=== PATIENT | male | born 1950 | race Caucasian/White ===

== ENCOUNTER 2023-03-26 09:04 | Inpatient (IN) ==
--- NOTE | 2023-03-08 13:29 | PAT Medication Instructions ---
Medication Instructions Date of Service March 08, 2023 Home Medications Balance Of Nature 6 tab PO QAM amlodipine 10 mg tablet 10 mg PO QPM aspirin 81 mg tablet 81 mg PO UD atorvastatin 40 mg tablet 40 mg PO PM hydrochlorothiazide 25 mg tablet 25 mg PO QPM losartan 100 mg tablet 100 mg PO QPM metoprolol tartrate 25 mg tablet 25 mg PO QPM ASK your prescriber and surgeon aspirin 81 mg tablet 81 mg PO UD STOP taking 2 weeks before surgery (or as soon as possible if surgery is within 2 weeks) Balance Of Nature 6 tab PO QAM Take evening before surgery amlodipine 10 mg tablet 10 mg PO QPM atorvastatin 40 mg tablet 40 mg PO PM hydrochlorothiazide 25 mg tablet 25 mg PO QPM losartan 100 mg tablet 100 mg PO QPM metoprolol tartrate 25 mg tablet 25 mg PO QPM Other Notes NOTHING TO EAT OR DRINK AFTER MIDNIGHT. If you have any questions please call us at [phone] or [phone] or [phone] or [phone]
--- NOTE | 2023-03-12 10:39 | Anesthesiology Consultation ---
Date of Service March 12, 2023 Assessment & Plan (1) Encounter for pre-operative examination: Infectious disease screening: Per assessment on 03/12/23: No known infectious disease contacts or current infectious disease symptoms. No noted recent Covid positive test result. Chart Review Chart Review: Acceptable Risk for Surgery and Patient seen in Pre Admission Testing Teaching & Discussion Pre-Anesthesia Teaching/Discussion Notes: Instructed NPO after midnight before surgery,except medications with 15 cc of water. Medication instructions provided according to the PAT guidelines. History Surgery Operation Date: 03/26/23 07:45 Proposed Procedures p L3-S1 Decompression and Fusion with Spinal Cord Monitoring - Jeff Buchanan DO Height/Weight Height: 5 ft 11 in Weight: 102.1 kg Allergies Allergy/AdvReac Type Severity Reaction Status Date / Time No Known Allergies Allergy Unverified 03/05/23 14:36 Medications Home Medications Medication Instructions Recorded Confirmed Last Taken Balance Of Nature 6 tab PO QAM 03/05/23 Unknown amlodipine 10 mg tablet 10 mg PO QPM 03/05/23 03/05/23 Unknown aspirin 81 mg tablet 81 mg PO UD 03/05/23 03/05/23 Unknown atorvastatin 40 mg tablet 40 mg PO PM 03/05/23 03/05/23 Unknown hydrochlorothiazide 25 mg tablet 25 mg PO QPM 03/05/23 03/05/23 Unknown losartan 100 mg tablet 100 mg PO QPM 03/05/23 03/05/23 Unknown metoprolol tartrate 25 mg tablet 25 mg PO QPM 03/05/23 03/05/23 Unknown Past Medical History Medical History Hyperlipidemia Hypertension Exercise / Class Metabolic Activity II 4-5 Yardwork/Stairs/Walk up hill (one FS (no CP, no SOB)) Past Surgical History Surgical History History of total hip arthroplasty left History of colonoscopy Past Anesthesia History No Hx of Anesthesia Complications and No Family Hx of Anesthesia Complications History of PONV No Hx of PONV and No Hx of Motion Sickness Social History Smoking Status: Never smoker Do You Dip or Chew Tobacco: No (Quit chewing tobacco 01/16/2023) Hx Alcohol Use: Yes Alcohol type: beer alcohol intake frequency: 0-2 drinks per day (2 beers or bourbon/day) Hx Substance Use: No Review of Systems Patient denies chest pain, shortness of breath, dyspnea on exertion, fever, chills, cough, wheezing, palpitations. Physical Exam Vital Signs VITALS BP 127/71 P 61 TEMP 98.5 SP02 97%RA RESP 16 PHYSICAL Full cervical extension range of motion. Full TMJ range of motion. TMD 3 finger breaths Mallampati Score 2 Dentition: missing sides Lungs: clear throughout to auscultation Cardiac: regular rate and rhythm, no murmurs noted Spine: normal Carotid arteries: negative bruit Extremities: no LE edema Lab Results Anesthesia Preop Results Results Anesthesia Widget: WBC 6.71 K/ul (4.8-10.8) 03/12/23 Hgb 16.7 g/dl (14.0-18.0) 03/12/23 Hct 48.3 % (42.0-52.0) 03/12/23 Plt 237 K/uL (130-400) 03/12/23 Na 139 mmol/L (136-145) 03/12/23 K 3.7 mmol/L (3.5-5.1) 03/12/23 Cl 102 mmol/L (98-107) 03/12/23 CO2 30 mmol/L (21-32) 03/12/23 BUN 16 mg/dl (6-23) 03/12/23 Creat 0.85 mg/dl (0.6-1.4) 03/12/23 Glucose Level 107 mg/dl (70-99(Fasting)) H 03/12/23 PT 10.9 Seconds (9.0-12.0) 03/12/23 PTT 26 Seconds (21-31) 03/12/23 INR 1.0 (0.9-1.1) 03/12/23 Urine Color Yellow 03/12/23 Urine Appearance Clear (Clear) 03/12/23 Urine pH 7.0 (4.5-7.5) 03/12/23 Urine Specific [place] 1.016 (1.000-1.030) 03/12/23 Urine Protein Negative (Negative) 03/12/23 Urine Glucose (UA) Negative (Negative) 03/12/23 Urine Ketones Negative (Negative) 03/12/23 Urine Blood Negative (Negative) 03/12/23 Urine Nitrite Negative (Negative) 03/12/23 Urine Bilirubin Negative (Negative) 03/12/23 Urine Urobilinogen Negative (Negative) 03/12/23 Urine Leukocyte Esterase Negative (Negative) 03/12/23 Blood Type B Positive 03/12/23 Antibody Screen NEGATIVE 03/12/23 Testing Electrocardiogram Date: 03/12/23 NSR at 64bpm. NS STA. Chest X-Ray Date: 03/12/23 FINDINGS: Lung volumes are normal. Lungs are clear. Nipple shadows project over the lower chest. There is no pneumothorax or pleural effusion. Cardiac size is normal. Mediastinal contours are normal. There is no evidence for pulmonary edema. IMPRESSION: No acute cardiopulmonary findings.
[~2023-03-26 09:04] MED LIST: ACETAMINOPHEN 500 MG TAB PO SCH; CeleBREX 200 MG CAP PO SCH; GABAPENTIN 300 MG CAP PO SCH; LR 15ML/HR IV SCH; LR 60ML/HR IV SCH; ceFAZolin 2000MG 2,000 MG/15 ML SYR IV SCH
[2023-03-26] MEDS ORDERED: ATROPINE SULFATE 0.1 MG/ML 10ML SYR IV PRN (10:41)
[2023-03-26] MEDS ORDERED: ONDANSETRON INJ 2 MG/ML 2 ML VIAL IV PRN ×2 (10:41→17:45)
[2023-03-26] MEDS ORDERED: ePHEDrine sulfate 50 MG/ML AMP IV PRN (10:41)
--- NOTE | 2023-03-26 11:17 | History & Physical Bridge Note ---
Date of Service March 26, 2023 History & Physical Bridge Note I have examined the patient, reviewed the History & Physical and in the interval since the performance of the History & Physical I have noted the following changes of clinical significance: no changes noted
--- NOTE | 2023-03-26 11:18 | History & Physical Report ---
Date of Service March 26, 2023 Assessment & Plan (1) Neurogenic claudication due to lumbar spinal stenosis: Plan: L3-S1 decompression and fusion History of Present Illness Chief Complaint: Back and bilateral leg pain Primary Care Provider: NO PCP This is a 72-year-old male who presents with chronic persistent back and leg pain after failing course of nonoperative care is here for surgical intervention. Allergies Allergy/AdvReac Type Severity Reaction Status Date / Time No Known Allergies Allergy Verified 03/26/23 09:55 Home Medications Medication Instructions Recorded Confirmed Type Balance Of Nature 6 tab PO QAM 03/05/23 03/26/23 History amlodipine 10 mg tablet 10 mg PO QPM 03/05/23 03/26/23 History aspirin 81 mg tablet 81 mg PO UD 03/05/23 03/26/23 History atorvastatin 40 mg tablet 40 mg PO PM 03/05/23 03/26/23 History hydrochlorothiazide 25 mg tablet 25 mg PO QPM 03/05/23 03/26/23 History losartan 100 mg tablet 100 mg PO QPM 03/05/23 03/26/23 History metoprolol tartrate 25 mg tablet 25 mg PO QPM 03/05/23 03/26/23 History Past Med/Surg History Medical History Hyperlipidemia Hypertension Surgical History History of total hip arthroplasty left History of colonoscopy Social History (System 01/14/23 @ 12:47 by Ruby Dumas) Smoking Status: Never smoker Tobacco Type: Smokeless Tobacco (Dip or Chew) Smoking End Date: stopped chewing tobacco 01/16/2023; Second Hand Exposure: No; Do You Dip or Chew Tobacco: No (Quit chewing tobacco 01/16/2023); Tobacco Cessation Education Requested by Patient: No Hx Alcohol Use: Yes Alcohol type: beer Hx Substance Use: No Preferred Language: French Feather Shaper Required: No Beliefs That Will Affect Care: None Current Living Situation: Spouse Other Information That Helps Us Care for You: No Feels Safe at Home: Yes Safety Concerns: Feels Safe At This Time Assistive Devices: Glasses and Hearing Aid - Bilateral Physical Exam Physical Exam: Patient is alert and oriented Heart regular in rhythm lungs clear Results & Data Results & Data Vital Signs (Past 12 Hours) Vital Signs Temp Pulse Resp BP Pulse Ox O2 Del Method 03/26/23 09:59 36.7 C 63 18 147/77 H 96 Room Air
[2023-03-26] MEDS ORDERED: fentaNYL citrate PF 100 MCG/2 ML VIAL ONE (11:57)
[2023-03-26] MEDS ORDERED: MIDAZOLAM HCL 1 MG/ML 2ML VIAL ONE (11:57)
[2023-03-26] MEDS ORDERED: BUPIVACAINE/EPINEPHRINE 0.25% 1:200,000 30 ML VIAL ONE (11:59)
[2023-03-26] MEDS ORDERED: ceFAZolin 330 MG/ML 1 GM VIAL ONE (11:59)
[2023-03-26] MEDS ORDERED: PROPOFOL IV EMULSION 10 MG/ML 20 ML VIAL IV ONE (12:32)
[2023-03-26] MEDS ORDERED: ONDANSETRON INJ 2 MG/ML 2 ML VIAL ONE ×2 (12:32→12:35)
[2023-03-26] MEDS ORDERED: ROCURONIUM BROMIDE 10 MG/ML 5 ML VIAL IV ONE ×2 (12:32→13:26)
[2023-03-26] MEDS ORDERED: DEXAMETHASONE SOD INJ 4 MG/ML VIAL ONE (12:32)
[2023-03-26] MEDS ORDERED: LIDOCAINE 2% 2 ML VIAL/AMP(20MG/ML) INFIL ONE ×2 (12:32→13:27)
[2023-03-26] MEDS ORDERED: FLOSEAL HEMOSTATIC MATRIX 10ML TOP ONE (13:06)
[2023-03-26] MEDS ORDERED: SUGAMMADEX SODIUM 200 MG/2 ML VIAL IV ONE (14:13)
--- NOTE | 2023-03-26 14:22 | Operative Report ---
Post Operative Report Pre & Post Diagnosis Operation Date: 03/26/23 11:10 Pre-Op Diagnosis: Spinal Stenosis, Lumbar Region with Neurogenic Claudication Spondylolisthesis L5-S1 Post-Op Diagnosis: Same I identified the patient and participated in the time-out.: Yes Procedure Operation Date: 03/26/23 11:10 Actual Procedures #1 lumbar decompression bilaterally facetectomies and foraminotomies L2-L3, L3- L4, L4-5 and L5-S1. #2 posterior spinal fusion L3-S1. #3 placed posterior segmental instrumentation L3-S1. #4 interbody fusion L3-L4. #5 placement sp iral 10 x 26 mm at L3-L4 #6 placement locally harvested morselized autograft and posterior gutters. #7 placement of Morpheus bone graft in the interbody space and infuse collagen sponge combined with close in the posterior lateral gutters. Surgeon Jeff Buchanan, DO Sap Manager Romie Tavarez Estimated Blood Loss 350 Findings See Below The patient is 5 foot 11 weighing over 102 kg with BMI in excess of 31. The patient's body habitus did contribute to significant technical difficulty required deepest retractors longer instruments in order to perform his procedure. This at least 50% increased operative time. Specimens None Indications This is a 72-year-old male who presents above-mentioned diagnosis after failing course of nonoperative care is here for surgical invention. Description of Procedure Patient was met with identified informed consent obtained. Patient was then taken to the operative suite underwent patient placed in a prone position ingestible top Rick frame. All bony promises well-padded eyes inspected to ensure no external pressure placed upon the. This point lumbar spine was prepped and draped in a sterile fashion. Sharp dissection with the assistance of Bovie cautery form down to and exposing the lamina transverse processes of L3 L4-5 and the sacral ala bilaterally. From caudal to cephalad fashion complete laminectomy of L5 L4 L3 and partial laminectomy of L2 was performed including bilateral medial facetectomies and foraminotomies addressing severe spinal stenosis. Pedicle screws were then placed at L3 L4-5 and S1 levels bilaterally with assistance of fluoroscopy in the process zion contoured and placed. By way of transforaminal approach on the left complete discectomy of L3-L4 was performed endplates guarded to subcortical and bone and a 11 x 26 mm prior cage with Morpheus bone graft tapped in position. The rods were then locked in final position bilaterally. The transverse processes of L3 L4-5 and sacral ala burred to subcortical pain bone. Infuse collagen sponge combined with Koros and local autograft placed in the posterior gutters. 15 round MUMTAZ inserted. The incision was then closed with 1 Vicryl to fascia 2-0 Vicryl subcutaneously and 4 Monocryl for final skin closure. Steri-Strips sterile dressing placed. Patient waken taken PACU stable condition. Please note spinal manage was utilized at the procedure no changes noted. Lastly Romie Tavarez was present at the entire surgeon while the patient positioning complex portions of the surgery and possible closure. I attest to the content of the Intraoperative Record and any orders documented therein. Any exceptions are noted below.
[2023-03-26] MEDS ORDERED: HYDROmorphone INJ 2 MG/ML SYR/VIAL ONE (14:28)
--- NOTE | 2023-03-26 15:27 | Fluoroscopy Report ---
FL lumbar spine 2-3V CLINICAL HISTORY: DECOMPRESSION AND FUSION L3-S1 COMPARISON STUDY: None. FLUOROSCOPY TIME: 34 seconds FLUOROSCOPY IMAGES: 2 Ka,r: 30.9 mGy FINDINGS: Posterior decompression and fusion from L3 through S1 with pedicle screws and rods. There i s a disc spacer at the L3-L4 level. The hardware appears intact. IMPRESSION: Fluoroscopic assistance as above. ACT 112: Negative or not required by law. Electronically signed by: Benjamin Collado M.D. 03/26/2023 3:25 PM
--- NOTE | 2023-03-26 15:52 | Anesthesiology Progress Note ---
Date of Service March 26, 2023 Anesthesia Post Procedure Vital Signs Vital Signs: Temp Pulse Resp BP Pulse Ox O2 Del Method O2 Flow Rate 03/26/23 15:45 36.4 C L 74 22 106/58 L 97 Room Air 03/26/23 15:35 60 21 105/58 L 99 Oxymask 4 03/26/23 15:25 61 16 98/58 L 99 Oxymask 4 03/26/23 15:15 59 L 16 111/63 100 Oxymask 4 03/26/23 15:05 57 L 20 109/64 99 Oxymask 6 03/26/23 14:55 67 13 122/58 L 95 Oxymask 6 03/26/23 14:47 36.3 C L 65 11 L 152/66 H 98 Oxymask 10 03/26/23 09:59 36.7 C 63 18 147/77 H 96 Room Air Transfer of Care Handoff Completed per policy Notes Mental Status: alert / awake / arousable Patient Amnestic to Procedure: Yes Nausea / Vomiting: adequately controlled Pain: adequately controlled Airway Patency, RR, SpO2: stable & adequate BP & HR: stable & adequate Hydration State: stable & adequate Anesthetic Complications: no major complications apparent
[2023-03-26] MEDS: fentaNYL citrate PF 100 MCG/2 ML VIAL IV PRN ×2 (16:00→16:05)
[2023-03-26] MEDS ORDERED: ALUMINUM/MAGNESIUM SUSP 30 ML UDC PO PRN (17:45)
[2023-03-26] MEDS ORDERED: LORazepam 0.5 MG TAB PO PRN (17:45)
[2023-03-26] MEDS ORDERED: NALOXONE HCL 0.4 MG/1 ML VIAL/CARP IV PRN (17:45)
[2023-03-26] MEDS ORDERED: DO NOT ADMINISTER PNEUMOCOCCAL VACCINE PRN (17:45)
[2023-03-26] MEDS ORDERED: ACETAMINOPHEN 1,000 MG/100 ML VIAL IV PRN (17:45)
[2023-03-26] MEDS ORDERED: HYDROmorphone INJ 0.5 MG/0.5 ML SYR IV PRN (17:45)
[2023-03-26] MEDS ORDERED: HYDROmorphone INJ 1 MG/ML SYRINGE IV PRN (17:45)
[2023-03-26] MEDS ORDERED: ONDANSETRON 4 MG OD TAB PO PRN (17:45)
[2023-03-26] MEDS ORDERED: diphenhydrAMINE Capsule 25 MG CAP PO PRN (17:45)
[2023-03-26] MEDS ORDERED: SOD PHOSPHATE/SOD BIPHOSPHATE ENEMA 132 ML BTL PR PRN (17:45)
[2023-03-26] MEDS ORDERED: traMADol HCL 50 MG TABLET PO PRN (17:45)
[2023-03-26] MEDS ORDERED: bisacodyL 10 MG SUPP PR PRN (17:45)
[2023-03-26] MEDS ORDERED: hydrOXYzine HCl 25 MG TAB PO PRN (17:45)
[2023-03-26] MEDS ORDERED: FAMOTIDINE 20 MG TAB PO PRN (17:45)
[2023-03-26] MEDS ORDERED: MAGNESIUM HYDROXIDE SUSP 30 ML UDC PO PRN (17:45)
[2023-03-26] MEDS ORDERED: METOCLOPRAMIDE HCL INJ 5 MG/ML 2 ML VIAL IV PRN (17:45)
[2023-03-26] MEDS ORDERED: PROMETHAZINE HCL 12.5 MG in SODIUM CHLORIDE 0.9% 50 ML IV PRN (17:45)
[2023-03-26] MEDS ORDERED: DO NOT ADMINISTER FLU VACCINE PRN (17:45)
[2023-03-26] MEDS ORDERED: LORazepam 0.5 MG in SYRINGE 0.25 ML IV PRN (17:45)
[2023-03-26] MEDS ORDERED: oxyCODONE HCL IR 5 MG TAB (IMMEDIATE RELEASE) PO PRN (17:45)
[2023-03-26] MEDS: LACTATED RINGER'S 1,000 ML IV SCH ×2 (17:54→23:59)
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
[2023-03-26] MEDS: LOSARTAN POTASSIUM 50 MG TAB PO SCH (20:47)
[2023-03-26] MEDS: ceFAZolin 2000MG 2,000 MG/15 ML SYR IV SCH (20:47)
[2023-03-26] MEDS: DOCUSATE SODIUM/SENNA 50/8.6MG TAB PO SCH (20:48)
[2023-03-26] MEDS: amLODIPine BESYLATE 5 MG TAB PO SCH (20:48)
[2023-03-26] MEDS: ATORVASTATIN 40 MG TAB PO SCH (20:48)
[2023-03-26] MEDS ORDERED: hydroCHLOROthiazide 25 MG TAB PO SCH (21:00)
[2023-03-26] MEDS ORDERED: METOPROLOL TARTRATE 25 MG TAB PO SCH (21:00)
[2023-03-26] MEDS: METOPROLOL SUCC 25MG EXT REL TAB PO SCH (21:55)
[2023-03-27] MEDS: ceFAZolin 2000MG 2,000 MG/15 ML SYR IV SCH (03:44)
[2023-03-27] MEDS: POLYETHYLENE (MIRALAX) 17 GM PACK PO SCH ×4 (06:05→23:06)
--- NOTE | 2023-03-27 08:10 | Orthopedic Progress Note ---
Date of Service March 27, 2023 Assessment & Plan (1) Neurogenic claudication due to lumbar spinal stenosis: Plan: Boom is postoperative day 1 status post L3-S1 decompression and instrumented fusion. He is doing well. Will start physical therapy today. DVT prophylaxis is in the form teds and SCDs. Maintain MUMTAZ drain. Continue with pain control. Anticipate discharge home early next week Admission and Anticipated Discharge Date Admission Date: March 26, 2023 Roopa Nur is postoperative day 1 status post L3-S1 decompression and fusion. He is doing well. He had an uneventful evening. Pain is controlled. MUMTAZ drain output last shift is 100 cc. Review of Systems Review of Systems: All systems reviewed & are unremarkable except as noted in HPI & below Physical Exam Physical Exam: Alert and oriented x 3 No acute distress strength is intact bilateral lower extremities Lumbar dressing is clean dry and intact with functioning MUMTAZ drain Results & Data Vital Signs (Past 12 Hours) Vital Signs Temp Pulse Resp BP Pulse Ox O2 Del Method 03/27/23 05:40 37.0 C 64 18 116/62 93 Room Air 03/27/23 01:30 37 C 67 18 116/62 95 Room Air 03/26/23 21:14 36.6 C 71 18 123/56 L 96 Room Air 03/26/23 20:15 37.1 C 69 19 110/66 94 Room Air
[2023-03-27 08:27] LABS: Basophils # (auto) 0.04 K/uL (0.00-0.20); Basophils % (auto) 0.3 %; Eosinophils # (auto) 0.08 K/uL (0.00-0.50); Eosinophils % (auto) 0.6 %; Hematocrit (blood only) 38.5 % (42.0-52.0); Hemoglobin 13.1 g/dl (14.0-18.0); Immature Granulocytes % (auto) 0.7 %; Lymphocytes # (auto) 1.19 K/uL (1.20-3.40); Lymphocytes % (auto) 8.3 %; Mean Corpuscular Hemoglobin 29.4 pg (25.0-34.0); Mean Corpuscular Volume 86.3 fL (80.0-100.0); Mean Platelet Volume 10.1 fL (9.4-12.4); Monocytes # (auto) 0.88 K/uL (0.11-0.59); Monocytes % (auto) 6.1 %; Platelet Count 205 K/uL (130-400); RDW Coefficient of Variation 12.9 % (11.5-14.5); RDW Standard Deviation 40.3 fL (36.4-46.3); Red Blood Count 4.46 M/uL (4.70-6.10); White Blood Count 14.39 K/ul (4.8-10.8)
--- NOTE | 2023-03-27 08:28 | Hospitalist Progress Note ---
Date of Service March 27, 2023 Assessment & Plan (1) Neurogenic claudication due to lumbar spinal stenosis: (2) Post-operative state: Plan: s/p lumbar decompression and fusion by Dr. Buchanan POD #1 -pain/wound management per Ortho -VTE prophylaxis per Ortho, encourage early ambulation -incentive spirometry encouraged -CBC, BMP in am -PT/OT and activity restrictions per Ortho Acute blood loss anemia, post-operative. vs dilutional pre-op Hgb 16.7 , post-op 13.1 expected, no need for blood transfusion cont. to monitor H&H (3) Hyperlipidemia: Plan: Chronic, stable. Continue atorvastatin per home regimen. (4) Hypertension: Plan: Chronic, at goal postoperatively. Hold HCTZ given postoperative state, resume when BP improves. Continue losartan and amlodipine per home regimen. Also continue metoprolol succinate nightly. DVT prophylaxis-SCDs, ambulation Full code Disposition-pending postoperative progress. Thank you for this consultation. A [facility] hospitalist will follow him daily while he is hospitalized. Admission and Anticipated Discharge Date Admission Date: March 26, 2023 Subjective Pt seen in follow up med. consult, pt s/p lumbar surgery Sitting up in chair in NAD. overall feeling well. Reports numbness in his feet has resolved. No fever, chills, chest pain, shortness of breath. No abd. pain. Review of Systems Review of Systems: All systems reviewed & are unremarkable except as noted in Subjective Physical Exam Physical Exam: CONSTITUTIONAL: WNWD, generally well-appearing, in NAD EYES: normal conjunctivae, no scleral icterus ENT: external ear and nose normal, MMM NECK: supple RESPIRATORY: clear to auscultation bilaterally, no crackles, rales or wheezes, normal respiratory effort CARDIOVASCULAR: regular rate and rhythm, S1 and 2 heard without murmurs CHEST: inspection of chest normal GASTROINTESTINAL: soft, nontender, ND, no guarding MUSCULOSKELETAL: strength 5/5 throughout, head is normocephalic and atraumatic SKIN: warm and dry, lumbar incision was not evaluated. +MUMTAZ drain in place with serosang. output as expected. NEURO/PSYCH: awake, alert, oriented, cooperative, answers appropriately, speech fluent, no facial asymmetry, moves extremities Results & Data Results & Data Vital Signs (Past 12 Hours) Vital Signs Temp Pulse Resp BP Pulse Ox O2 Del Method 03/27/23 05:40 37.0 C 64 18 116/62 93 Room Air 03/27/23 01:30 37 C 67 18 116/62 95 Room Air 03/26/23 21:14 36.6 C 71 18 123/56 L 96 Room Air Laboratory Results 03/27/23 03/26/23 Range/Units 08:01 09:46 WBC 14.39 H (4.8-10.8) K/ul RBC 4.46 L (4.70-6.10) M/uL Hgb 13.1 L (14.0-18.0) g/dl Hct 38.5 L (42.0-52.0) % MCV 86.3 (80.0-100.0) fL MCH 29.4 (25.0-34.0) pg MCHC 34.0 (32.0-36.0) g/dL RDW Std Deviation 40.3 (36.4-46.3) fL RDW Coeff of Violetta 12.9 (11.5-14.5) % Plt Count 205 (130-400) K/uL MPV 10.1 (9.4-12.4) fL Immature Gran % (Auto) 0.7 % Neut % (Auto) 84.0 % Lymph % (Auto) 8.3 % Mcleod % (Auto) 6.1 % Eos % (Auto) 0.6 % Baso % (Auto) 0.3 % Neut # (Auto) 12.10 H (1.40-6.50) K/uL Lymph # (Auto) 1.19 L (1.20-3.40) K/uL Mcleod # (Auto) 0.88 H (0.11-0.59) K/uL Eos # (Auto) 0.08 (0.00-0.50) K/uL Baso # (Auto) 0.04 (0.00-0.20) K/uL Immature Gran # (Auto) 0.10 (0.01-0.20) K/uL Sodium 137 (136-145) mmol/L Potassium 3.8 (3.5-5.1) mmol/L Chloride 104 (98-107) mmol/L Carbon Dioxide 24 (21-32) mmol/L Anion Gap 9 (3-11) BUN 16 (6-23) mg/dl Creatinine 0.85 (0.6-1.4) mg/dl Est Cr Clr Drug Dosing 97.0 ml/min Est GFR ( Amer) 101.6 ml/min Est GFR (Non-Af Amer) 87.7 ml/min BUN/Creatinine Ratio 18.8 (10-20) Glucose 151 H (70-99(Fasting)) mg/dl Calcium 8.6 (8.6-10.3) mg/dl Blood Type B Positive Antibody Screen NEGATIVE Crossmatch See Detail Medications Administered Current Inpatient Medications Acetaminophen (Acetaminophen 500 Mg Tab) 1,000 mg PO Q8H PRN PRN Reason: MILD Pain Scale 1,2,3 & Pre PT Stop: 04/25/23 17:44 Al Hydrox/Mg Hydrox/Simethicone (Aluminum/Magnesium Susp 30 Ml Udc) 30 ml PO Q6H PRN PRN Reason: Dyspepsia Stop: 04/25/23 17:44 Amlodipine Besylate (Amlodipine Besylate 5 Mg Tab) 10 mg PO QPM [facility] Stop: 04/25/23 20:59 Last Admin: 03/26/23 20:48 Dose: 10 mg Aspirin (Aspirin 81 Mg Ectab) 81 mg PO Q2D@0900 [facility] Stop: 04/26/23 08:59 Atorvastatin Calcium (Atorvastatin 40 Mg Tab) 40 mg PO PM [facility] Stop: 04/25/23 20:59 Last Admin: 03/26/23 20:48 Dose: 40 mg Bisacodyl (Bisacodyl 10 Mg Supp) 10 mg LA DAILY PRN PRN Reason: Constipation Stop: 04/25/23 17:44 Diphenhydramine HCl (Diphenhydramine Capsule 25 Mg Cap) 25 mg PO Q6H PRN PRN Reason: Allergic Rhinitis/Insomnia Stop: 04/25/23 17:44 Famotidine (Famotidine 20 Mg Tab) 20 mg PO Q12H PRN PRN Reason: Dyspepsia Stop: 04/25/23 17:44 Hydrochlorothiazide (Hydrochlorothiazide 25 Mg Tab) 25 mg PO QPM [facility] Stop: 04/25/23 20:59 Last Admin: 03/26/23 20:47 Dose: 25 mg Hydromorphone HCl (Hydromorphone Inj 0.5 Mg/0.5 Ml Syr) 0.5 mg IV Q3H PRN PRN Reason: MODERATE Pain (Scale 4,5,6) & Pre PT Stop: 04/09/23 17:44 Hydromorphone HCl (Hydromorphone Inj 1 Mg/Ml Syringe) 1 mg IV Q3H PRN PRN Reason: SEVERE Pain (Scale 7,8,9,10) Stop: 04/09/23 17:44 Hydroxyzine HCl (Hydroxyzine Hcl 25 Mg Tab) 25 mg PO Q8H PRN PRN Reason: Anxiety Stop: 04/25/23 17:44 Promethazine HCl 12.5 mg/ (Sodium Chloride) 50.5 mls @ 202 mls/hr IV Q6H PRN PRN Reason: Nausea &/or Vomiting Stop: 04/25/23 17:44 Acetaminophen (Ofirmev) 1,000 mg in 100 mls @ 400 mls/hr IV Q8H PRN PRN Reason: Pain Rating 1-3 & Pre PT Stop: 03/27/23 17:46 Lorazepam 0.5 mg/ Syringe 0.5 mls @ 2 mls/min IV Q8H PRN; Protocol PRN Reason: Sedation/Anxiety Stop: 04/25/23 17:44 Dexamethasone 6 mg/ Syringe 1.5 mls @ 1 mls/min IV DAILY [facility] Stop: 03/29/23 09:02 Influenza Virus Vaccine Quadrival (Do Not Administer Flu Vaccine) 1 each N/A PRN PRN PRN Reason: Notification Stop: 04/25/23 17:44 Lorazepam (Lorazepam 0.5 Mg Tab) 0.5 mg PO Q8H PRN PRN Reason: Sedation/Anxiety Stop: 04/25/23 17:44 Losartan Potassium (Losartan Potassium 50 Mg Tab) 100 mg PO QPM [facility] Stop: 04/25/23 20:59 Last Admin: 03/26/23 20:47 Dose: 100 mg Magnesium Hydroxide (Magnesium Hydroxide Susp 30 Ml Udc) 30 ml PO Q24H PRN PRN Reason: Constipation Stop: 04/25/23 17:44 Metoclopramide HCl (Metoclopramide Hcl Inj 5 Mg/Ml 2 Ml Vial) 10 mg IV Q6H PRN PRN Reason: Nausea &/or Vomiting Stop: 04/25/23 17:44 Metoprolol Succinate (Metoprolol Succ 25mg Ext Rel Tab) 25 mg PO HS [facility] Stop: 04/25/23 20:59 Last Admin: 03/26/23 21:55 Dose: 25 mg Naloxone HCl (Naloxone Hcl 0.4 Mg/1 Ml Vial/Carp) 0.1 mg IV Q5M PRN PRN Reason: Oversedation/Resp depression Stop: 04/25/23 17:44 Ondansetron HCl (Ondansetron Inj 2 Mg/Ml 2 Ml Vial) 4 mg IV Q6H PRN PRN Reason: Nausea &/or Vomiting Stop: 04/25/23 17:44 Ondansetron HCl (Ondansetron 4 Mg Od Tab) 4 mg PO Q6H PRN PRN Reason: Nausea Stop: 04/25/23 17:44 Oxycodone HCl (Oxycodone Hcl Ir 5 Mg Tab (Immediate Release)) 5 - 10 mg PO Q4H PRN PRN Reason: Pain & Pre PT Stop: 04/09/23 17:44 Pneumococcal Polyvalent Vaccine (Do Not Administer Pneumococcal Vaccine) 1 each N/A PRN PRN PRN Reason: Notification Stop: 04/25/23 17:44 Polyethylene Glycol (Polyethylene (Miralax) 17 Gm Pack) 17 gm PO Q6 [facility] Stop: 04/26/23 05:59 Last Admin: 03/27/23 06:05 Dose: 17 gm Senna/Docusate Sodium (Docusate Sodium/Senna 50/8.6mg Tab) 2 tab PO HS [facility] Stop: 04/25/23 20:59 Last Admin: 03/26/23 20:48 Dose: 2 tab Sodium Biphosphate/Sodium Phosphate (Sod Phosphate/Sod Biphosphate Enema 132 Ml Btl) 132 ml LA ONE PRN PRN Reason: Constipation Stop: 04/25/23 17:44 Tramadol HCl (Tramadol Hcl 50 Mg Tablet) 50 - 100 mg PO Q4H PRN PRN Reason: Moderate-Severe pain & Pre PT Stop: 04/25/23 17:44
[2023-03-27 08:44] LABS: BUN Creatinine Ratio 18.8 (10-20); Calcium 8.6 mg/dl (8.6-10.3); Est GFR (African American) 101.6 ml/min; Est GFR (Non-African American) 87.7 ml/min; Potassium 3.8 mmol/L (3.5-5.1)
[2023-03-27] MEDS ORDERED: BALANCE OF NATURE PO SCH (09:00)
[2023-03-27] MEDS ORDERED: ASPIRIN 81 MG ECTAB PO SCH (09:00)
[2023-03-27] MEDS: dexAMETHasone 6 MG in SYRINGE 0 ML IV SCH (09:09)
[2023-03-27] MEDS: ACETAMINOPHEN 500 MG TAB PO PRN (12:59)
[2023-03-27] MEDS: DOCUSATE SODIUM/SENNA 50/8.6MG TAB PO SCH (21:05)
[2023-03-27] MEDS: amLODIPine BESYLATE 5 MG TAB PO SCH (21:05)
[2023-03-27] MEDS: LOSARTAN POTASSIUM 50 MG TAB PO SCH (21:05)
[2023-03-27] MEDS: ATORVASTATIN 40 MG TAB PO SCH (21:06)
[2023-03-27] MEDS: METOPROLOL SUCC 25MG EXT REL TAB PO SCH (21:06)
[2023-03-28] MEDS: POLYETHYLENE (MIRALAX) 17 GM PACK PO SCH ×2 (05:45→12:08)
[2023-03-28] MEDS: ACETAMINOPHEN 500 MG TAB PO PRN ×2 (07:54→17:18)
[2023-03-28] MEDS: dexAMETHasone 6 MG in SYRINGE 0 ML IV SCH (07:57)
[2023-03-28 08:00] LABS: Hematocrit (blood only) 36.7 % (42.0-52.0); Hemoglobin 12.3 g/dl (14.0-18.0); Mean Corpuscular Hemoglobin 29.1 pg (25.0-34.0); Mean Corpuscular Hgb Conc 33.5 g/dL (32.0-36.0); Mean Platelet Volume 10.7 fL (9.4-12.4); Platelet Count 195 K/uL (130-400); RDW Coefficient of Variation 12.9 % (11.5-14.5); RDW Standard Deviation 40.9 fL (36.4-46.3); Red Blood Count 4.22 M/uL (4.70-6.10); White Blood Count 15.62 K/ul (4.8-10.8)
[2023-03-28 08:14] LABS: BUN Creatinine Ratio 23.1 (10-20); Calcium 8.5 mg/dl (8.6-10.3); Creatinine Clr Calc Pharmacy 105.7 ml/min; Est GFR (African American) 105.3 ml/min; Est GFR (Non-African American) 90.8 ml/min; Magnesium 2.1 mg/dl (1.7-2.4); Phosphorus 2.3 mg/dl (2.5-4.9)
--- NOTE | 2023-03-28 08:47 | Orthopedic Progress Note ---
Date of Service March 28, 2023 Assessment & Plan (1) Neurogenic claudication due to lumbar spinal stenosis: Plan: Boom is postoperative day 2 status post L3-S1 decompression instrumented fusion. We will continue with pain control. Continue with ambulation/physical therapy. DVT prophylaxis is in the form of teds and SCDs. Maintain MUMTAZ drain. Anticipate discharge home tomorrow. Admission and Anticipated Discharge Date Admission Date: March 26, 2023 Roopa Nur is postoperative day 2 status post L3-S1 decompression and fusion. He is doing well. He is up and ambulatory around the hallways plus ambulating 290 feet in physical therapy yesterday. No radicular leg pain. H&H this morning are 12.3 and 36.7 respectively. MUMTAZ drain output is 30 cc last shift. Review of Systems Review of Systems: All systems reviewed & are unremarkable except as noted in HPI & below Physical Exam Physical Exam: Sitting in a chair no acute distress Alert and oriented x 3 Lumbar dressing is clean dry and intact with functioning MUMTAZ drain Strength is intact bilateral lower extremities Calf soft and nontender bilaterally Results & Data Vital Signs (Past 12 Hours) Vital Signs Temp Pulse Pulse Resp BP Pulse Ox O2 Del Method 03/28/23 08:17 36.7 C 58 L 16 108/63 96 Room Air 03/27/23 20:46 36.6 C 70 18 133/67 96 Room Air
--- NOTE | 2023-03-28 08:50 | Hospitalist Progress Note ---
Date of Service March 28, 2023 Assessment & Plan (1) Neurogenic claudication due to lumbar spinal stenosis: (2) Post-operative state: Plan: s/p lumbar decompression and fusion by Dr. Buchanan (03/26/22) -pain/wound management per Ortho -VTE prophylaxis per Ortho, encourage early ambulation -incentive spirometry encouraged -CBC, BMP in am -PT/OT and activity restrictions per Ortho Acute blood loss anemia, post-operative. vs dilutional pre-op Hgb 16.7 , post-op 13.1 -> 12.3 expected, no need for blood transfusion cont. to monitor H&H (3) Hyperlipidemia: Plan: Chronic, stable. Continue atorvastatin per home regimen. (4) Hypertension: Plan: Chronic, at goal postoperatively. Hold HCTZ given postoperative state, resume when BP improves. Continue losartan and amlodipine but lowered dose for now. Continue metoprolol succinate nightly. DVT prophylaxis-SCDs, ambulation Full code Disposition-pending postoperative progress. Thank you for this consultation. A [facility] hospitalist will follow him daily while he is hospitalized. Admission and Anticipated Discharge Date Admission Date: March 26, 2023 Subjective Pt seen in follow up med. consult, pt s/p lumbar surgery Laying in NAD. overall feeling well. Reports numbness in his feet has resolved. He has been ambulating in hallway. No fever, chills, chest pain, shortness of breath. No abd. pain. He is voiding and having BMs. Review of Systems Review of Systems: All systems reviewed & are unremarkable except as noted in Subjective Physical Exam Physical Exam: CONSTITUTIONAL: WNWD, generally well-appearing, in NAD EYES: normal conjunctivae, no scleral icterus ENT: external ear and nose normal, MMM NECK: supple RESPIRATORY: clear to auscultation bilaterally, no crackles, rales or wheezes, normal respiratory effort CARDIOVASCULAR: regular rate and rhythm, S1 and 2 heard without murmurs CHEST: inspection of chest normal GASTROINTESTINAL: soft, nontender, ND, no guarding MUSCULOSKELETAL: strength 5/5 throughout, head is normocephalic and atraumatic SKIN: warm and dry, lumbar incision was not evaluated. +MUMTAZ drain in place with serosang. output as expected. NEURO/PSYCH: awake, alert, oriented, cooperative, answers appropriately, speech fluent, no facial asymmetry, moves extremities Results & Data Results & Data Vital Signs (Past 12 Hours) Vital Signs Temp Pulse Resp BP Pulse Ox O2 Del Method 03/28/23 08:17 36.7 C 58 L 16 108/63 96 Room Air Medications Administered Current Inpatient Medications Acetaminophen (Acetaminophen 500 Mg Tab) 1,000 mg PO Q8H PRN PRN Reason: MILD Pain Scale 1,2,3 & Pre PT Stop: 04/25/23 17:44 Last Admin: 03/28/23 07:54 Dose: 1,000 mg Al Hydrox/Mg Hydrox/Simethicone (Aluminum/Magnesium Susp 30 Ml Udc) 30 ml PO Q6H PRN PRN Reason: Dyspepsia Stop: 04/25/23 17:44 Amlodipine Besylate (Amlodipine Besylate 5 Mg Tab) 5 mg PO QPM [facility] Stop: 04/27/23 20:59 Aspirin (Aspirin 81 Mg Ectab) 81 mg PO Q2D@0900 [facility] Stop: 04/26/23 08:59 Atorvastatin Calcium (Atorvastatin 40 Mg Tab) 40 mg PO PM [facility] Stop: 04/25/23 20:59 Last Admin: 03/27/23 21:06 Dose: 40 mg Bisacodyl (Bisacodyl 10 Mg Supp) 10 mg MA DAILY PRN PRN Reason: Constipation Stop: 04/25/23 17:44 Diphenhydramine HCl (Diphenhydramine Capsule 25 Mg Cap) 25 mg PO Q6H PRN PRN Reason: Allergic Rhinitis/Insomnia Stop: 04/25/23 17:44 Famotidine (Famotidine 20 Mg Tab) 20 mg PO Q12H PRN PRN Reason: Dyspepsia Stop: 04/25/23 17:44 Hydrochlorothiazide (Hydrochlorothiazide 25 Mg Tab) 25 mg PO QPM [facility] Stop: 04/25/23 20:59 Last Admin: 03/26/23 20:47 Dose: 25 mg Hydromorphone HCl (Hydromorphone Inj 0.5 Mg/0.5 Ml Syr) 0.5 mg IV Q3H PRN PRN Reason: MODERATE Pain (Scale 4,5,6) & Pre PT Stop: 04/09/23 17:44 Hydromorphone HCl (Hydromorphone Inj 1 Mg/Ml Syringe) 1 mg IV Q3H PRN PRN Reason: SEVERE Pain (Scale 7,8,9,10) Stop: 04/09/23 17:44 Hydroxyzine HCl (Hydroxyzine Hcl 25 Mg Tab) 25 mg PO Q8H PRN PRN Reason: Anxiety Stop: 04/25/23 17:44 Promethazine HCl 12.5 mg/ (Sodium Chloride) 50.5 mls @ 202 mls/hr IV Q6H PRN PRN Reason: Nausea &/or Vomiting Stop: 04/25/23 17:44 Lorazepam 0.5 mg/ Syringe 0.5 mls @ 2 mls/min IV Q8H PRN; Protocol PRN Reason: Sedation/Anxiety Stop: 04/25/23 17:44 Dexamethasone 6 mg/ Syringe 1.5 mls @ 1 mls/min IV DAILY [facility] Stop: 03/29/23 09:02 Last Admin: 03/28/23 07:57 Dose: 1 mls/min Influenza Virus Vaccine Quadrival (Do Not Administer Flu Vaccine) 1 each N/A PRN PRN PRN Reason: Notification Stop: 04/25/23 17:44 Lorazepam (Lorazepam 0.5 Mg Tab) 0.5 mg PO Q8H PRN PRN Reason: Sedation/Anxiety Stop: 04/25/23 17:44 Losartan Potassium (Losartan Potassium 50 Mg Tab) 50 mg PO QPM [facility] Stop: 04/27/23 20:59 Magnesium Hydroxide (Magnesium Hydroxide Susp 30 Ml Udc) 30 ml PO Q24H PRN PRN Reason: Constipation Stop: 04/25/23 17:44 Metoclopramide HCl (Metoclopramide Hcl Inj 5 Mg/Ml 2 Ml Vial) 10 mg IV Q6H PRN PRN Reason: Nausea &/or Vomiting Stop: 04/25/23 17:44 Metoprolol Succinate (Metoprolol Succ 25mg Ext Rel Tab) 25 mg PO HS [facility] Stop: 04/25/23 20:59 Last Admin: 03/27/23 21:06 Dose: 25 mg Naloxone HCl (Naloxone Hcl 0.4 Mg/1 Ml Vial/Carp) 0.1 mg IV Q5M PRN PRN Reason: Oversedation/Resp depression Stop: 04/25/23 17:44 Ondansetron HCl (Ondansetron Inj 2 Mg/Ml 2 Ml Vial) 4 mg IV Q6H PRN PRN Reason: Nausea &/or Vomiting Stop: 04/25/23 17:44 Ondansetron HCl (Ondansetron 4 Mg Od Tab) 4 mg PO Q6H PRN PRN Reason: Nausea Stop: 04/25/23 17:44 Oxycodone HCl (Oxycodone Hcl Ir 5 Mg Tab (Immediate Release)) 5 - 10 mg PO Q4H PRN PRN Reason: Pain & Pre PT Stop: 04/09/23 17:44 Pneumococcal Polyvalent Vaccine (Do Not Administer Pneumococcal Vaccine) 1 each N/A PRN PRN PRN Reason: Notification Stop: 04/25/23 17:44 Polyethylene Glycol (Polyethylene (Miralax) 17 Gm Pack) 17 gm PO Q6 [facility] Stop: 04/26/23 05:59 Last Admin: 03/28/23 05:45 Dose: 17 gm Senna/Docusate Sodium (Docusate Sodium/Senna 50/8.6mg Tab) 2 tab PO HS [facility] Stop: 04/25/23 20:59 Last Admin: 03/27/23 21:05 Dose: 2 tab Sodium Biphosphate/Sodium Phosphate (Sod Phosphate/Sod Biphosphate Enema 132 Ml Btl) 132 ml MA ONE PRN PRN Reason: Constipation Stop: 04/25/23 17:44 Tramadol HCl (Tramadol Hcl 50 Mg Tablet) 50 - 100 mg PO Q4H PRN PRN Reason: Moderate-Severe pain & Pre PT Stop: 04/25/23 17:44
[2023-03-28] MEDS: ATORVASTATIN 40 MG TAB PO SCH (20:08)
[2023-03-28] MEDS: DOCUSATE SODIUM/SENNA 50/8.6MG TAB PO SCH (20:09)
[2023-03-28] MEDS: METOPROLOL SUCC 25MG EXT REL TAB PO SCH (20:11)
[2023-03-28] MEDS ORDERED: LOSARTAN POTASSIUM 50 MG TAB PO SCH (21:00)
[2023-03-28] MEDS ORDERED: amLODIPine BESYLATE 5 MG TAB PO SCH (21:00)
[2023-03-29] MEDS: ACETAMINOPHEN 500 MG TAB PO PRN (02:22)
--- NOTE | 2023-03-29 08:34 | Hospitalist Progress Note ---
Date of Service March 29, 2023 Assessment & Plan (1) Neurogenic claudication due to lumbar spinal stenosis: (2) Post-operative state: Plan: s/p lumbar decompression and fusion by Dr. Buchanan (03/26/22) -pain/wound management per Ortho -VTE prophylaxis per Ortho, encourage early ambulation -incentive spirometry encouraged -CBC, BMP in am -PT/OT and activity restrictions per Ortho Acute blood loss anemia, post-operative. vs dilutional pre-op Hgb 16.7 , post-op 13.1 -> 12.3 current H&h pending, will review expected, no need for blood transfusion cont. to monitor H&H (3) Hyperlipidemia: Plan: Chronic, stable. Continue atorvastatin per home regimen. (4) Hypertension: Plan: Chronic, at goal postoperatively. Hold HCTZ given postoperative state, resume when BP improves. Continue losartan and amlodipine but lowered dose for now. Continue metoprolol succinate nightly. DVT prophylaxis-SCDs, ambulation Full code Disposition-pending postoperative progress. Thank you for this consultation. A [facility] hospitalist will follow him daily while he is hospitalized. Admission and Anticipated Discharge Date Admission Date: March 26, 2023 Subjective Pt seen in follow up med. consult, pt s/p lumbar surgery Laying in NAD. overall feeling well. Reports numbness in his feet has resolved. He has been ambulating in hallway. No fever, chills, chest pain, shortness of breath. No abd. pain. He is voiding and having BMs. Review of Systems Review of Systems: All systems reviewed & are unremarkable except as noted in Subjective Physical Exam Physical Exam: CONSTITUTIONAL: WNWD, generally well-appearing, in NAD EYES: normal conjunctivae, no scleral icterus ENT: external ear and nose normal, MMM NECK: supple RESPIRATORY: clear to auscultation bilaterally, no crackles, rales or wheezes, normal respiratory effort CARDIOVASCULAR: regular rate and rhythm, S1 and 2 heard without murmurs CHEST: inspection of chest normal GASTROINTESTINAL: soft, nontender, ND, no guarding MUSCULOSKELETAL: strength 5/5 throughout, head is normocephalic and atraumatic SKIN: warm and dry, lumbar incision was not evaluated. +MUMTAZ drain in place with serosang. output as expected. NEURO/PSYCH: awake, alert, oriented, cooperative, answers appropriately, speech fluent, no facial asymmetry, moves extremities Results & Data Results & Data Vital Signs (Past 12 Hours) Vital Signs Temp Pulse Resp BP Pulse Ox O2 Del Method 03/29/23 07:26 36.7 C 58 L 17 122/59 L 96 Room Air 03/28/23 20:34 Room Air Medications Administered Current Inpatient Medications Acetaminophen (Acetaminophen 500 Mg Tab) 1,000 mg PO Q8H PRN PRN Reason: MILD Pain Scale 1,2,3 & Pre PT Stop: 04/25/23 17:44 Last Admin: 03/29/23 02:22 Dose: 1,000 mg Al Hydrox/Mg Hydrox/Simethicone (Aluminum/Magnesium Susp 30 Ml Udc) 30 ml PO Q6H PRN PRN Reason: Dyspepsia Stop: 04/25/23 17:44 Amlodipine Besylate (Amlodipine Besylate 5 Mg Tab) 5 mg PO QPM [facility] Stop: 04/27/23 20:59 Last Admin: 03/28/23 20:08 Dose: 5 mg Aspirin (Aspirin 81 Mg Ectab) 81 mg PO Q2D@0900 [facility] Stop: 04/26/23 08:59 Atorvastatin Calcium (Atorvastatin 40 Mg Tab) 40 mg PO PM [facility] Stop: 04/25/23 20:59 Last Admin: 03/28/23 20:08 Dose: 40 mg Bisacodyl (Bisacodyl 10 Mg Supp) 10 mg NM DAILY PRN PRN Reason: Constipation Stop: 04/25/23 17:44 Diphenhydramine HCl (Diphenhydramine Capsule 25 Mg Cap) 25 mg PO Q6H PRN PRN Reason: Allergic Rhinitis/Insomnia Stop: 04/25/23 17:44 Famotidine (Famotidine 20 Mg Tab) 20 mg PO Q12H PRN PRN Reason: Dyspepsia Stop: 04/25/23 17:44 Hydrochlorothiazide (Hydrochlorothiazide 25 Mg Tab) 25 mg PO QPM [facility] Stop: 04/25/23 20:59 Last Admin: 03/26/23 20:47 Dose: 25 mg Hydromorphone HCl (Hydromorphone Inj 0.5 Mg/0.5 Ml Syr) 0.5 mg IV Q3H PRN PRN Reason: MODERATE Pain (Scale 4,5,6) & Pre PT Stop: 04/09/23 17:44 Hydromorphone HCl (Hydromorphone Inj 1 Mg/Ml Syringe) 1 mg IV Q3H PRN PRN Reason: SEVERE Pain (Scale 7,8,9,10) Stop: 04/09/23 17:44 Hydroxyzine HCl (Hydroxyzine Hcl 25 Mg Tab) 25 mg PO Q8H PRN PRN Reason: Anxiety Stop: 04/25/23 17:44 Promethazine HCl 12.5 mg/ (Sodium Chloride) 50.5 mls @ 202 mls/hr IV Q6H PRN PRN Reason: Nausea &/or Vomiting Stop: 04/25/23 17:44 Lorazepam 0.5 mg/ Syringe 0.5 mls @ 2 mls/min IV Q8H PRN; Protocol PRN Reason: Sedation/Anxiety Stop: 04/25/23 17:44 Dexamethasone 6 mg/ Syringe 1.5 mls @ 1 mls/min IV DAILY [facility] Stop: 03/29/23 09:02 Last Admin: 03/28/23 07:57 Dose: 1 mls/min Influenza Virus Vaccine Quadrival (Do Not Administer Flu Vaccine) 1 each N/A PRN PRN PRN Reason: Notification Stop: 04/25/23 17:44 Lorazepam (Lorazepam 0.5 Mg Tab) 0.5 mg PO Q8H PRN PRN Reason: Sedation/Anxiety Stop: 04/25/23 17:44 Losartan Potassium (Losartan Potassium 50 Mg Tab) 50 mg PO QPM [facility] Stop: 04/27/23 20:59 Last Admin: 03/28/23 20:09 Dose: 50 mg Magnesium Hydroxide (Magnesium Hydroxide Susp 30 Ml Udc) 30 ml PO Q24H PRN PRN Reason: Constipation Stop: 04/25/23 17:44 Metoclopramide HCl (Metoclopramide Hcl Inj 5 Mg/Ml 2 Ml Vial) 10 mg IV Q6H PRN PRN Reason: Nausea &/or Vomiting Stop: 04/25/23 17:44 Metoprolol Succinate (Metoprolol Succ 25mg Ext Rel Tab) 25 mg PO HS [facility] Stop: 04/25/23 20:59 Last Admin: 03/28/23 20:11 Dose: Not Given Naloxone HCl (Naloxone Hcl 0.4 Mg/1 Ml Vial/Carp) 0.1 mg IV Q5M PRN PRN Reason: Oversedation/Resp depression Stop: 04/25/23 17:44 Ondansetron HCl (Ondansetron Inj 2 Mg/Ml 2 Ml Vial) 4 mg IV Q6H PRN PRN Reason: Nausea &/or Vomiting Stop: 04/25/23 17:44 Ondansetron HCl (Ondansetron 4 Mg Od Tab) 4 mg PO Q6H PRN PRN Reason: Nausea Stop: 04/25/23 17:44 Oxycodone HCl (Oxycodone Hcl Ir 5 Mg Tab (Immediate Release)) 5 - 10 mg PO Q4H PRN PRN Reason: Pain & Pre PT Stop: 04/09/23 17:44 Pneumococcal Polyvalent Vaccine (Do Not Administer Pneumococcal Vaccine) 1 each N/A PRN PRN PRN Reason: Notification Stop: 04/25/23 17:44 Senna/Docusate Sodium (Docusate Sodium/Senna 50/8.6mg Tab) 2 tab PO HS [facility] Stop: 04/25/23 20:59 Last Admin: 03/28/23 20:09 Dose: Not Given Sodium Biphosphate/Sodium Phosphate (Sod Phosphate/Sod Biphosphate Enema 132 Ml Btl) 132 ml NM ONE PRN PRN Reason: Constipation Stop: 04/25/23 17:44 Tramadol HCl (Tramadol Hcl 50 Mg Tablet) 50 - 100 mg PO Q4H PRN PRN Reason: Moderate-Severe pain & Pre PT Stop: 04/25/23 17:44
[2023-03-29] MEDS: dexAMETHasone 6 MG in SYRINGE 0 ML IV SCH (08:59)
[2023-03-29 09:28] LABS: Hematocrit (blood only) 39.3 % (42.0-52.0); Hemoglobin 12.9 g/dl (14.0-18.0)
--- NOTE | 2023-03-29 09:40 | Discharge Summary ---
Date of Service March 29, 2023 Admission HPI Per Admitting Provider This is a 72-year-old male who presents with chronic persistent back and leg pain after failing course of nonoperative care is here for surgical intervention. Principal Diagnosis Lumbar spinal stenosis with neurogenic claudication Discharge Data Allergies Allergy/AdvReac Type Severity Reaction Status Date / Time No Known Allergies Allergy Verified 03/26/23 09:55 Consultations 03/26/23 17:45 Consult Hospitalist Routine Procedures Performed Operation Date: 03/26/23 11:10 Actual Procedures p L3-S1 Decompression and Fusion, Spinal Cord Monitoring(Not Applicable) - Jeff Buchanan DO Ordered Studies 03/26/23 13:00 [place] lumbar spine 2-3V Routine Hospital Course (1) Neurogenic claudication due to lumbar spinal stenosis: Patient underwent multilevel lumbar depression fusion tolerates well was taken to orthopedic for postop platelet. Postop day #1 he was up and ambulating progressed appropriately throughout his hospital stay. Eccentric to testing. MUMTAZ drain decreased probably. Pain well-controlled. Subsequent discharge home. Discharge orders instructions from the chart for further review. Total Time Total Time Spent Total Time Spent (In Minutes): 20 minutes Discharge Plan Discharge Items Patient Disposition: Home - Self-Care Reason For Visit: POSTOP Discharge Diagnosis: Lumbar spinal stenosis with neurogenic claudication and spinal listhesis L5-S1 Activity: As commented below Non-emergency contact: Primary Care Provider Call non-emergency contact if: you have any medication questions Follow-up/Referrals: Dennys Eldridge M.D. [Primary Care Provider] - Diet: Regular Addtl Attending Provider Instructions: ACTIVITY RECOMMENDATIONS: SELF CARE INSTRUCTIONS AFTER THORACIC/LUMBAR FUSIONS 1. You may walk to your tolerance. It is good exercise for your legs and back. Expect some back and intermittent leg aches and pains. 2. You may perform "counter-top" level activities (make a sandwich, sera with a project, etc.). 3. No bending or lifting of more than 10 pounds or back twisting of any nature (roll like a log when turning in bed). 4. You may ride in a car for 20-30 minutes at a time. No driving until after your first visit with your doctor. 5. Frequent changes of position and restricting sitting to 30 minutes at a time will help limit the amount of back spasms and stiffness you may experience. 6. You may discontinue the use of ambulatory aids (cane, crutches, etc.) once your strength and confidence allow. 7. You may inspector brake lining the shower and let water strike your incision when you arrive home at least once daily. Do not take a tub bath, sit in a hot tub or go into a swimming pool until after your first recheck in the office. SPECIAL CARE INSTRUCTIONS: VERY IMPORTANT TO READ AND REVIEW A. Your surgical incision has been closed with a cosmetic suture under the skin that will dissolve in about 6 weeks. In 14 days, you can use a pair of clean scissors and cut the suture that is left outside of the skin at the ends of your incision. 1. The small skin tapes can be removed 7 days after surgery if they have not fallen off by that point. 2. You may keep the wound open to air as much as possible to promote healing after post-op day number 5 unless told otherwise by your doctor. 3. If you think the wound looks like it is becoming infected (redness or worsening drainage) and/or you are experiencing fever, chill or worsening back pain and muscle spasms, contact the office so that we may evaluate you as soon as possible. B. Complications are uncommon, but please contact us if you have any signs or symptoms of: 1. wound infection (fever higher than 102.5 degrees F, redness, separation of wound, drainage, or increasing pain from the incision) 2. blood clots in legs (pain, swelling, redness and warmth in legs) 3. urinary tract infection (fever higher than 102.5 degrees F, burning upon urination or increased frequency of urination) 4. nerve problems (inability to walk on your toes or heels, numbness, loss of bowel or bladder control) 5. any other symptoms that concern you C. Please call the office at if you have any concerns or questions about your operation or recovery. D. No smoking! Smoking drastically decreases the chance of a solid fusion. E. Do not take any anti-inflammatory medications (Indocin, Advil, Motrin, Aspirin, Naprosyn, etc.) as these may inhibit the chance of a solid fusion. Tylenol is okay to take for pain. MANAGING PAIN AFTER SPINAL SURGERY 1. Narcotic medication is intended for short-term use and will be provided for surgical pain. Surgical pain usually lasts for a period of 4-6 weeks. Narcotic medication includes Percocet, Vicodin, Darvocet, Tylenol #3 or Lortab. 2. Longer-term pain is more appropriately treated with non-narcotic medication such as Tylenol ES. 3. Muscle spasm is not appropriately treated with narcotics. Muscle relaxers such as Soma, Flexeril or Skelaxin can be used along with Tylenol ES. 4. Remember that we all live with some "aches and pains". This is not unusual or uncommon after an injury or as we get older. a. Back pain is expected and may include muscle spasms for 4 to 6 weeks after surgery. The pain should gradually improve. If the pain worsens for no apparent reason, please contact the office. b. Intermittent leg pain may also be experienced and should not be concerned about unless it worsens for no apparent reason. If so, please contact the office. 5. We will provide appropriate medication within the normal guidelines of their prescribed use. We will also be very cautious and aware of potential abuse and extended duration of patients' medication needs. a. Pain medications are for your comfort and to assist with sleep and rest so that the tissue can heal. They are not provided in order to return to normal activity and should not be used through the day. To do so or worsening pain at night can result from ongoing tissue damage and development of tolerance to the prescribed medicine. 6. Please allow 2-3 days to process refills. Prescriptions will not be mailed but must be picked up at the office. FOLLOW UP VISIT: Keep your scheduled follow-up appointment. Any questions, please call the office at . Addtl Pathology Secretary/Transcriptionist Provider Instructions: Do not take hydrochlorothiazide (one of your blood pressure medications) for 1 week. If you can, check your blood pressure at home. Discuss with your primary care doctor if/ when you should resume this medication. Pending Studies at Discharge: No Stand-Alone Forms: [employer], Smoking Cessation Medications and MA Order Prescriptions: New tramadol 50 mg tablet 50 mg PO Q6H PRN (Reason: pain, moderate) Qty: 30 0RF oxycodone-acetaminophen [Percocet] 5-325 mg tablet 1 tab PO Q8H Qty: 20 0RF Continued atorvastatin 40 mg Tablet 40 mg PO PM amlodipine 10 mg Tablet 10 mg PO QPM aspirin 81 mg Tablet 81 mg PO Q2D Patient Comments: every other day hydrochlorothiazide 25 mg Tablet 25 mg PO QPM losartan 100 mg Tablet 100 mg PO QPM Balance Of Nature 6 tab PO QAM metoprolol succinate 25 mg tablet extended release 24 hr 25 mg PO HS Discharge Orders: Discharge Order (Routine); Ordered 03/29/23 Ordered By: Jeff Buchanan Admission Data Admit Date/Time: 03/26/23 14:23 Attending Provider: Jeff Buchanan Admit Provider: Jeff Buchanan Primary Care Provider: Dennys Eldridge Other Providers: Lona Raphael; Willis Puga
== END 2023-03-29 11:19 | disposition home or self-care (01) | DRG 454 ==
LOC: ASU 09:04 → 3N 14:23